=== PATIENT | male | born 1965 | race Caucasian/White ===

== ENCOUNTER 2024-05-16 16:18 | Emergency (ER) | payer OTHER, SELFPAY ==
--- NOTE | ~2024-05-16 | CT_ITS ---
EXAMINATION: CT brain wo con DATE: 05/16/2024 17:51 INDICATION: Transient alteration of awareness TECHNIQUE: Computed tomography (CT) of the head was performed without intravenous contrast. Sagittal and coronal reconstructions were performed. The mA was adjusted according to patient size. Iterative reconstruction technique was employed. The dose-length product was 681.00 mGy-cm. COMPARISON: None FINDINGS: No acute intracranial hemorrhage, acute infarction or abnormal extra axial fluid collection. There is mild scattered white matter hypoattenuation consistent with chronic small vessel ischemic disease wi th possible small old lacunar infarcts at the bilateral subinsular white matter. Ventricles are reji l and symmetric. No mass/mass effect. The orbits, paranasal sinuses and mastoid air cells are normal. IMPRESSION: 1. Mild scattered white matter hypoattenuation consistent with chronic small vessel ischemic disease with possible small old lacunar infarcts at the bilateral subinsular white matter. Reviewed, dictated and finalized at location B. IMPRESSION: 1. Mild scattered white matter hypoattenuation consistent with chronic small ve ssel ischemic disease with possible small old lacunar infarcts at the bilateral subinsular white matter.
--- NOTE | ~2024-05-16 | XR_ITS ---
XR chest 2V Ordering provider: Zofia Kumar History: 58 years Male with . pre-syncope . Comparison: July 13, 2011 FINDINGS: MEDIASTINUM: The cardiac silhouette is not enlarged. LUNGS: No infiltrates, effusions or pneumothorax. OTHER: No free air under the diaphragm. IMPRESSION: No acute cardiopulmonary pathology. Reviewed, dictated and finalized at location A.
[2024-05-16 16:30] VITALS: BP 143/92; PULSE 82; RESP 16; TEMP 36.4; O2SAT 99
--- NOTE | 2024-05-16 17:17 | ED.GENADULT ---
HPI - General Adult General Chief complaint: Unspecified <Zofia Kumar PA-C - Last Filed: 05/17/24 18:33> Stated complaint: arm shaking <Zofia Kumar PA-C - Last Filed: 05/17/24 18:33> Time Seen by Provider: 05/16/24 17:17 <Zofia Kumar PA-C - Last Filed: 05/17/24 18:33> Focused HPI: This is a 58 year old male that presents to the ER for an episode earlier today of pre-syncope. Reports he started to feel his right arm shaking. He then felt like his whole body was numb. This lasted for several minutes. He felt like he was going to pass out. He did not pass out. Reports some shortness of breath. Denies chest pain, current numbness or weakness. GENERAL: Well-appearing, well-nourished, and in no acute distress. HEAD: Normocephalic, atraumatic. CHEST: Clear to auscultation. ?No respiratory distress. HEART: Regular rate and rhythm.? NEURO: ?Alert and oriented x3. Patient screened in triage and initial orders placed.? ?Additional care and disposition to be based upon?diagnostic testing and treatment. <Zofia Kumar PA-C - Last Filed: 05/17/24 18:33> History of Present Illness HPI narrative: 58-year-old male presenting with near syncopal episode. Patient states that he was at work when he suddenly started feeling lightheaded and like he was about to pass out. States that his right arm started to shake. States that he had full control over it it just seemed shaky. He did not actually lose consciousness. He sat down and his symptoms improved. No focal numbness or weakness. No vision changes or speech changes. He felt a bit short of breath but denies chest pain, palpitations. Currently, he states that he feels fine, just a bit generally tired. No further complaints. <Jacqueline Barbosa MD - Last Filed: 05/16/24 21:13> Related Data Allergies/adverse reactions: Allergies Allergy/AdvReac Type Severity Reaction Status Date / Time No Known Allergies Allergy Mild Unverified 06/30/05 06:21 <Zofia Kumar PA-C - Last Filed: 05/17/24 18:33> Review of Systems Review of Systems: All systems reviewed & are unremarkable except as noted in HPI and below <Jacqueline Barbosa MD - Last Filed: 05/16/24 21:13> [facility] Past Medical History Medical History: Medical History (Updated 05/17/24 @ 09:33 by Zofia Kumar PA-C) History of erectile dysfunction <Zofia Kumar PA-C - Last Filed: 05/17/24 18:33> Social History Social History: Social History (Updated 05/17/24 @ 09:33 by Zofia Kumar PA-C) Substance use: never <Zofia Kumar PA-C - Last Filed: 05/17/24 18:33> Exam Narrative: GENERAL: Well-appearing, no acute distress, pleasant cooperative HEAD: Normocephalic, atraumatic. EYES: PERRLA and EOMI. ENT: Grossly unremarkable NECK: Supple. CHEST: Clear to auscultation. No respiratory distress. HEART: Regular rate and rhythm. ABDOMEN: Soft, nontender, nondistended EXTREMITIES: Normal range of motion. No edema. SKIN: Warm, dry, no rash. NEURO: No focal deficits. Alert and oriented x3. 5/5 strength in all extremities, no pronator drift, [id number] intact, no facial droop, no dysarthria or aphasia PSYCH: Normal mood and affect. <Jacqueline Barbosa MD - Last Filed: 05/16/24 21:13> Course Vital Signs Vital signs: Vital Signs Temperature 97.6 F 05/16/24 16:30 Pulse Rate 82 05/16/24 16:30 Respiratory Rate 16 05/16/24 16:30 Blood Pressure 143/92 H 05/16/24 16:30 Pulse Oximetry 99 05/16/24 16:30 Oxygen Delivery Room Air 05/16/24 16:30 Temperature 97.6 F 05/16/24 16:30 Pulse Rate 78 05/16/24 19:26 Respiratory Rate 16 05/16/24 19:26 Blood Pressure 157/99 H 05/16/24 19:26 Pulse Oximetry 99 05/16/24 19:26 Oxygen Delivery Room Air 05/16/24 16:30 <Zofia Kumar PA-C - Last Filed: 05/17/24 18:33> Vital Signs Temperature 97.6 F 05/16/24 16:30 Pulse Rate 82 05/16/24 16:30 Respi
--- NOTE | 2024-05-16 17:19 | ECG_ITS ---
Test Date: 2024-05-16 17:33:41 Measurements Intervals [place] Rate: 76 P: 4 IL: 147 QRS: 33 QRSD: 84 T: 46 QT: 380 QTc: 428 Interpretive Statements SINUS RHYTHM WITH FREQUENT SUPRAVENTRICULAR PREMATURE COMPLEXES MINIMAL Q WAVES- ANTEROLATERAL LEADS ABNORMAL ECG No previous ECG available for comparison Electronically Signed On 05-16-2024 19:24:35 CDT by Eddie Whalen D.O.
[2024-05-16 17:55] LABS: Basophils Absolute Auto 0.1 K/mm3 (0.0-0.1); Basophils Percent Auto 1.4 % (0.2-1.2); Eosinophils Absolute Auto 0.2 K/mm3 (0-0.3); Eosinophils Percent Auto 3.2 % (0-4.4); Hematocrit 49.4 % (42.0-52.0); Hemoglobin 16.6 g/dL (14.0-18.0); Immature Granulocyte Absolute 0.01 K/mm3 (0.00-0.031); Immature Granulocyte Percent A 0.2 % (0-0.5); Lymphocytes Absolute Auto 1.57 K/mm3 (0.9-3.2); Lymphocytes Percent Auto 31.1 % (18.3-44.2); Mean Corpuscular HGB Conc 33.6 g/dl (32-36); Mean Corpuscular Hemoglobin 31.6 pg (26-34); Mean Corpuscular Volume 93.9 fl (80-100); Mean Platelet Volume 9.2 fl (7.4-10.4); Monocytes Absolute Auto 0.4 K/mm3 (0.1-0.6); Monocytes Percent Auto 7.7 % (2.6-8.5); Neutrophils Absolute Auto 2.9 K/mm3 (1.3-6.7); Neutrophils Percent Auto 56.4 % (45.5-73.1); Platelet Count Result 159 k/mm3 (150-375); Red Blood Count 5.26 M/mm3 (4.6-6.20); Red Cell Distribution Width 13.7 % (11.5-14.5); White Blood Count 5.1 K/mm3 (4.5-10.0)
[2024-05-16 18:07] LABS: Ethanol < 10 mg/dL (<10)
[2024-05-16 18:08] LABS: Alanine Aminotransferase 37 U/L (6-50); Alkaline Phosphatase 137 U/L (38-126); Anion Gap 10 mmol/L (4-12); Aspartate Amino Transferase 31 U/L (17-59); Bilirubin,Total 1.1 mg/dL (0.2-1.3); Blood Urea Nitrogen 9 mg/dL (9-20); Calcium 8.9 mg/dL (8.4-10.2); Carbon Dioxide 23 mmol/L (22-30); Chloride 103 mmol/L (98-107); Estimated CRCL calculation 63 ml/min; Estimated Glomerular Filt Rate > 60; Glucose 101 mg/dL (65-110); Potassium 4.1 mmol/L (3.4-5.0); Sodium 136 mmol/L (137-145)
[2024-05-16 18:20] LABS: Amphetamine Screen Urine Negative (Negative); Barbiturate Screen Urine Negative (Negative); Benzodiazepines Screen Urine Negative (Negative); Cannabinoid Screen Urine Negative (Negative); Cocaine Screen Urine Negative (Negative); Methadone Screen Urine Negative (Negative); Opiate Screen Urine Negative (Negative); Phencyclidine Screen Urine Negative (Negative)
[2024-05-16 18:23] LABS: Prothrombin Time 13.7 Seconds (11.1-14.7)
[2024-05-16 18:24] LABS: Partial Thromboplastin Time 25.3 Seconds (22.3-36.8)
[2024-05-16 18:25] LABS: Add Urine Microscopic? YES; Appearance Urine Clear (Clear); Bacteria Urine None Seen /hpf; Bilirubin Urine Negative (Negative); Blood Urine Negative (Negative); Color Urine Yellow (Yellow); Glucose Urine UA Negative (Negative); Ketones Urine Negative (Negative); Leukocyte Esterase Ur 1+ LEU/UL (Negative); Need Manual Microscopic Reviewed; Nitrate Urine Negative (Negative); Non Pathogenic Casts 0-2; Protein Urine Negative (Negative); RBC Urine 0-2 /hpf (0-2); Specific Grav Ur 1.018 (1.001-1.035); Squamous Epithelial Cell Urine None Seen /hpf (Few); WBC Urine 0-5 /hpf (0-3)
[2024-05-16] MEDS: SODIUM CHLORIDE 0.9% IV 1,000 ML 999 ML IV CONT (19:10)
[2024-05-16 19:26] VITALS: BP 157/99; PULSE 78; RESP 16; O2SAT 99
== END 2024-05-16 21:30 | disposition home or self-care (01) ==
PROVIDERS: Physician Assistant; Emergency Provider Emergency Medicine
DX: R55 Syncope and collapse (principal)
CPT/HCPCS: 36415; 70450; 71046; 80053; 80307; 81001; 85025; 85610; 85730; 87086; 93005; 96360; 99284; J7030